=== PATIENT | male | born 1995 | race Caucasian/White ===

== ENCOUNTER 2023-11-17 19:49 | Emergency (ER) | payer SELFPAY ==
[2023-11-17] MEDS ORDERED: Sodium Chloride 0.9% 1,000 ML ONE (20:28)
[2023-11-17 20:53] LABS: Hemoglobin 16.9 g/dL (14.0-18.0); Mean Corpuscular HGB CONC 33.7 g/dL (32.0-36.0); Mean Corpuscular Hemoglobin 29.1 pg (27.0-31.0); Mean Corpuscular Volume 86.3 fl (78.0-98.0); Mean Platelet Volume 5.6 fL (7.4-10.4); Platelet Count 232 10x3/uL (130-400); RBC Distribution Width 11.4 % (11.5-14.5); White Blood Cell (WBC) Count 5.5 10x3/uL (4.8-10.8)
[2023-11-17 20:55] LABS: Eosinophils 1 % (0-10); Lymphocytes 29 % (21-51); MDiff Complete? YES; Monocytes 14 % (0-10); Neutrophil 56 % (42-75)
[2023-11-17 21:13] LABS: CK (CPK) 197 U/L (30-200); Magnesium 2.2 mg/dL (1.6-2.6)
[2023-11-17 21:14] LABS: Troponin I Less than 0.010 ng/mL (< 0.028)
[2023-11-17 21:30] LABS: Bilirubin Negative (Negative); Blood, Urine Negative (Negative); Clarity Clear (Clear); Glucose, Urine (Dipstick) Negative (Negative); Ketone, Urine 15 mg/dL (Negative); Leukocyte Negative (Negative); Nitrite Negative (Negative); Protein, Urine (Dipstick) Negative (Neg-Trace); Urobilinogen 0.2 mg/dL (Less than 2)
[2023-11-17 21:32] LABS: CAUTI Indications for Culture < 2yrs of age; RBC/HPF None Seen HPF (0-3); Specific Gravity, Urine 1.024 (1.002-1.036); Squamous Epithelial 0-3 HPF (0-3); WBC/HPF None Seen HPF (0-3)
[2023-11-17 21:33] LABS: Urine Culture Reflex Yes Yes
== END 2023-11-17 22:59 | disposition home or self-care (01) ==
LOC: MADERS 19:49
DX: R00.0 Tachycardia, unspecified (principal); F19.929 Other psychoactive substance use, unspecified with intoxication, unspecified; F17.290 Nicotine dependence, other tobacco product, uncomplicated; F17.200 Nicotine dependence, unspecified, uncomplicated
CPT/HCPCS: 81001; 82550; 83605; 83735; 84484; 85025; 87086; 93005; 96360; J7050